=== PATIENT | female | born 2000 | race Caucasian/White ===

== ENCOUNTER 2023-12-23 16:23 | Emergency (ER) | payer MEDICAID | END 2023-12-23 19:07 | LOC: JD.ED 16:23 | DX: F10.10 Alcohol abuse, uncomplicated (principal); F19.10 Other psychoactive substance abuse, uncomplicated; Z79.899 Other long term (current) drug therapy; Y90.9 Presence of alcohol in blood, level not specified | CPT/HCPCS: 36415; 80307; 99283 ==